=== PATIENT | male | born 1975 | race Caucasian/White ===

== ENCOUNTER 2017-11-14 10:55 | Emergency (ER) | payer OTHER ==
--- NOTE | 2017-11-14 11:12 | EDPHY ---
H & P Stated Complaint: snowboard accident yesterday, now facial swelling Time Seen by Provider: 11/14/17 11:11 HPI/ROS: HPI: This is a 41-year-old male who presents with Chief Complaint: snowboard accident yesterday, now facial swelling Location: Bridge of nose, suborbital right eye Quality: Swelling Duration: 12 hr Signs and Symptoms: no LOC, no diplopia, no visual loss, no headache, no epistaxis, no amnesia, no nausea, no vomiting, no dizziness Timing: Gradual onset Severity: [id number] Context: Patient reports that he was snowboarding yesterday, wearing a helmet, when he accidentally hit packed snow causing him to fall forward off of his snowboard. Patient reports that he directly hit the bridge of his nose in the snow. He reports that he had a nose bleed at the time but it quickly resolved with direct pressure. He continued snowboarding the rest of the day. This morning he woke up and noted that he had some bruising below both of his eyes. He is most concerned with the suborbital mild swelling that developed this morning. He reports that his nasal bridge is tender with palpation. He has had no further nose bleeds. Denies LOC/neck injury/nausea/vomiting/dizziness/ headache. Patient reports the only reason why he came in is to determine whether or not he has orbital fracture extending into his sinus. Modifying Factors: None Comment: ROS: see HPI Constitutional: No fever, no chills, no weight loss Eyes: No blurred vision Respiratory: No shortness of breath, no cough Cardiovascular: No chest pain, no palpitations Gastrointestinal: No nausea, no vomiting, no diarrhea, no hematemesis, no blood in stool Genitourinary: No dysuria, no blood in urine Extremities: No myalgias, no edema Neurologic: No weakness, no numbness Skin: No rashes, no petechiae Hematologic: No bruising, no bleeding MEDICAL/SURGICAL/SOCIAL HISTORY: Medical history: History of concussion. Heart murmur as a child. Surgical history: Denies Social history: Nonsmoker. Family history noncontributory. CONSTITUTIONAL: Extremely polite and cooperative middle-aged white male, awake and alert, no obvious distress HEENT: normocephalic, PERRL, EOMI. no globe entrapment, no raccoon eyes. no Hameed signs. Patient has mild ecchymosis and swelling bilateral suborbital early. Tympanic membranes clear. No tympanic membrane rupture. Nares patent; no septal hematoma; nasal bridge shows mild swelling with tenderness to palpation-no obvious deformity. Oropharynx clear, no exudate and moist pink mucosa. No malocclusion. no dental trauma. Airway patent. No lymphadenopathy. NECK: supple, no midline tenderness, flexion 45 degrees, extension 45 degrees, right and left lateral flexion 45 degrees. No meningismus. Cardiovascular: Normal S1/S2, regular rate, regular rhythm, without murmur rub or gallop. PULMONARY/CHEST: Symmetrical and nontender. Clear to auscultation bilaterally. Good air movement. No accessory muscle usage. ABDOMEN: Soft, nondistended, nontender, no ecchymosis, no rebound, no guarding , no peritoneal signs, no masses or organomegaly. No CVAT. EXTREMITIES: 2/2 pulses, no deformities, no clubbing, no cyanosis or edema. NEUROLOGICAL: no focal neuro deficits. GCS 15. SKIN: Warm and dry, no erythema. no rash. Good capillary refill. Source: Patient Exam Limitations: No limitations - Personal History Current Tetanus/Diphtheria Vaccine: No Current Tetanus Diphtheria and Acellular Pertussis (TDAP): No - Medical/Surgical History Hx Asthma: No Hx Chronic Respiratory Disease: No Hx Diabetes: No Hx Cardiac Disease: No Hx Renal Disease: No Hx Cirrhosis: No Hx Alcoholism: No Hx HIV/AIDS: No Hx Splenectomy or Spleen Trauma: No Other PMH: concussion, heart murmur as a child - Social History Smoking Status: Never smoked Constitutional: Initial Vital Signs Temperature (C) 36.5 C 11/14/17 11:00 Heart Rate 76 11/14/17 11:00 Respiratory Rate 16 11/14/17 11:00 Blood Pressure 148/105 H 11/14/17 11:00 O2 Sat (%) 98 11/14/17 11:00 O2 Delivery Mode Room Air Allergies/Adverse Reactions: No Known Allergies Allergy (Unverified 11/14/17 11:04) Home Medications: Medication Instructions Recorded NK [No Known Home Meds] 11/14/17 Medical Decision Making - Diagnostics Imaging Results: Imaging Impressions Face CT 11/14/17 11:17 Impression: 1. Nondisplaced nasal bone fractures with associated soft tissue swelling. 2. No additional fractures are seen about the facial bones. Findings discussed with Marce Simmons PAC 1 at 12:05 hour, 11/14/2017. ED Course/Re-evaluation: Maxillofacial CT scan ordered Based on [place] protocol; head CT and cervical CT scans are not indicated. No LOC/neurological deficits Called by radiologist who advised that there is no orbital rim fracture, sinus fracture, globe entrapment. + Nondisplaced nasal bone fractures with associated soft tissue swelling. Advised supportive care and ENT follow-up. This patient was seen under the supervision of my secondary supervising physician. I evaluated care for this patient independently. Discussed this patient with Dr. Mireles who did not see the patient. Differential Diagnosis: Head injury including but not limited to concussion, skull fracture, intraparenchymal contusion, subarachnoid, subdural and epidural hematoma. Departure - Departure Disposition: Home, Routine, Self-Care Clinical Impression: Nasal bones, closed fracture Qualifiers: Encounter type: initial encounter Qualified Code(s): S02.2XXA - Fracture of nasal bones, initial encounter for closed fracture Condition: Good Instructions: Nasal Fracture (ED), Concussion (ED) Additional Instructions: CT maxillofacial scan shows nondisplaced nasal bridge fracture. This should heal on its own. Please avoid blowing your nose x 3 days. Take Tylenol 650 mg every 4 hours and/or Ibuprofen 600 mg every 8 hours with food as needed for pain. Apply ice for 30 minutes at a time; 2-3 times per day for the next 1-2 days. Avoid any strenuous activity x 3 days. Please observe concussion precautions. Follow up with ear nose and throat in 10-14 days at which time they will evaluate and recommend with you if conservative management versus surgery is indicated. Return to the ER immediately if you have progressive headaches, neurologic deficits, gait abnormality, visual disturbance, slurred speech, or any other symptom that concerns you. Referrals: Harriett Arauz PAC [Primary Care Provider] - As per Instructions Hi Haq MD [Medical Doctor] - As per Instructions
[2017-11-14 12:34] VITALS: BP 145/96
== END 2017-11-14 12:34 | disposition home or self-care (01) ==
DX: S02.2XXA Fracture of nasal bones, initial encounter for closed fracture (principal); V00.311A Fall from snowboard, initial encounter; Y99.8 Other external cause status; Y93.23 Activity, snow (alpine) (downhill) skiing, snowboarding, sledding, tobogganing and snow tubing